=== PATIENT | female | born 1950 | race Caucasian/White ===

== ENCOUNTER 2018-01-10 09:19 | Inpatient (IN) | payer MEDICARE, OTHER ==
[2018-01-05 10:08] LABS: URINE BILIRUBIN NEGATIVE (Negative); URINE BLOOD NEGATIVE (Negative); URINE COLOR YELLOW; URINE GLUCOSE-RANDOM NEGATIVE (Negative); URINE KETONES NEGATIVE (Negative); URINE LEUKOCYTES-REFLEX 1+ (Negative); URINE NITRITE-REFLEX NEGATIVE (Negative); URINE PROTEIN NEGATIVE (Negative); URINE SPECIFIC GRAVITY 1.025 (1.005-1.030); URINE UROBILINOGEN 0.2 E.U./dl (0.2-1.0)
[2018-01-05 10:10] LABS: URINE CLARITY SL CLOUDY
[2018-01-05 10:26] LABS: BACTERIA-REFLEX >30 Many /HPF (None Seen); CASTS None Seen /LPF (None Seen); CRYSTALS None Seen /LPF (None Seen); SQUAMOUS >10 Many /LPF (0-3); URINE RBC None Seen /HPF (0-2); URINE WBC-REFLEX 6-15 Few /HPF (0-5)
[2018-01-05 10:31] LABS: HEMATOCRIT 43.9 % (37.0-47.0); HEMOGLOBIN 14.5 gm/dL (12.0-15.0); MCH 28.5 pg (26.0-34.0); MCHC 32.9 g/dL (28.0-37.0); MCV 86.7 fL (80.0-100.0); MPV 7.8 fl. (7.2-11.1); RBC 5.07 mil/uL (4.20-5.00); WBC 7.4 thou/uL (4.0-11.0)
[2018-01-05 10:46] LABS: INR 1.1; PROTIME 10.7 Seconds (9.20-11.50)
[2018-01-05 10:51] LABS: ALBUMIN 3.6 g/dL (3.4-5.0); CALCIUM 9.1 mg/dL (8.5-10.1); CREATININE 0.8 mg/dL (0.6-1.3); POTASSIUM 4.4 mmol/L (3.5-5.1); TOTAL BILIRUBIN 0.3 mg/dL (<0.1-1.0); TOTAL PROTEIN 7.5 g/dL (6.4-8.2)
--- NOTE | 2018-01-05 11:30 | EKG ---
[place] [address] ELECTROCARDIOGRAM REPORT Name: MARCEL MA Room: PRE IN [facility].#: [id number] Admission: Attend Phys: Bill Suggs Discharge: Date of : 54 Report #: [id number] THIS REPORT FOR: //name// [facility] Test Date: 2018-01-05 Test Time: 09:28:45 Pat Name: MARCEL MA Department: Room: Gender: F Ux Developer: : 1950 Requested By: Bran Worrell Order Number: [id number] Reading MD: Tyron Ledbetter Measurements Intervals [place] Rate: 87 P: 59 SD: 127 QRS: 46 QRSD: 92 T: 34 QT: 348 QTc: 419 Interpretive Statements Sinus rhythm No previous ECG available for comparison Electronically Signed On 01-05-2018 11:29:49 KNITTING SUPERVISOR by Tyron Ledbetter [email or web address] <ELECTRONICALLY SIGNED> By: Tyron Ledbetter MD, [facility] 01/05/18 1129 0928 0928 Tyron Ledbetter MD, [facility] /EPI
[~2018-01-10] VITALS: Ht 157.5 cm; Wt 99.8 kg
[2018-01-10 10:30] VITALS: BP 128/90
[2018-01-10 16:24] VITALS: BP 134/69
--- NOTE | 2018-01-10 16:39 | NUR ---
PATIENT ARRIVED ON UNIT AT 1615 FROM PACU. COMPLETED ASSESSMENT. ALERT AND ORIENTED X'S 4. VITAL SIGNS AND SPO2 STABLE. CAPNO IN PLACE. IV CLEAN, FLUIDS INFUSING. DRESSING OVER KNEE CLEAN, DRY, INTACT. HEMOVAC IN PLACE. POLAR CARE, TEDS ON LEFT LEG, SCD'S, YELLOW SOCKS IN PLACE. NO NAUSEA AND VOMITING. PAIN WELL CONTROLLED WITH PAIN MEDS. COMPLETED HOURLY ROUNDING. CALL LIGHT WITHIN REACH, WILL CONTINUE TO MONITOR.
--- NOTE | 2018-01-10 16:54 | NUR ---
RECIEVED O.T. EVAL AND TX ORDER. WILL DEFER TO P.T. AND NURSING AT THIS TIME. PLEASE ORDER FURTHER O.T. SERVICES IF NEEDED.
[2018-01-11 00:11] VITALS: BP 147/65
[2018-01-11 04:19] VITALS: BP 116/56
[2018-01-11 04:53] LABS: ABSOLUTE LYMPHOCYTES 1.4 thou/uL (0.8-5.3); ABSOLUTE MONOCYTES 0.6 thou/uL (0.0-1.2); BASOPHILS 0.1 %; CALCIUM 8.4 mg/dL (8.5-10.1); CREATININE 0.8 mg/dL (0.6-1.3); HEMATOCRIT 35.5 % (37.0-47.0); LYMPHOCYTES 12.5 %; MCH 29.1 pg (26.0-34.0); MCHC 33.8 g/dL (28.0-37.0); MCV 86.2 fL (80.0-100.0); MONOCYTES 5.4 %; MPV 8.6 fl. (7.2-11.1); NUCLEATED RBCS 0 /100WBC; PLATELET COUNT* 229 thou/uL (150-400); POTASSIUM 4.8 mmol/L (3.5-5.1); RBC 4.12 mil/uL (4.20-5.00); RDW-CV 13.2 % (10.5-14.5)
--- NOTE | 2018-01-11 04:54 | NUR ---
PATIENT IS ALERT AND ORIENTED X 4. VSS ON 3L 02 VIA NASAL CANNULA AND CAPNO IN PLACE. PATIENT HAS SLEPT WELL THROUGHOUT THE NIGHT WITHOUT ANY ISSUES. PAIN CONTROLLED WITH MEDICATION ORDERED AND CHARTED. DRESSING TO RIGHT KNEE IS C/D/I, LICO HOSE, POLAR CARE AND SCD'S IN PLACE. HEMOVAC IN PLACE WITH MODERATE AMOUNT OF SEROSANGINOUS DRAINAGE. IV IN LEFT HAND-SL. IV IN RIGHT HAND-SL. IV ABT GIVEN WITHOUT ANY ADVERSE SIDE EFFECTS NOTED. FALL PRECAUTIONS IN PLACE. PATIENT INSTRUCTED TO USE CALL LIGHT WHEN NEEDING ASSISTANCE. HOURY ROUNDS MADE. WILL CONTINUE WITH PLAN OF CARE AND NURSING TO MONITOR.
[2018-01-11 08:10] VITALS: BP 111/68
[2018-01-11 16:00] VITALS: BP 132/64
--- NOTE | 2018-01-11 17:06 | NUR ---
SPOKE WITH PT.AND . SHE SAID HE WILL BE WITH HER FOR 2-3 DAYS 20/06. SHE HAS A REGULAR FRONT WHEEL WALKER THAT THERAPIST RECOMMENDED. ALSO HAS A ROLLATOR WALKER WITH SEAT. DISCUSSED CPM AND POLAR PACK.SHE WOULD LIKE TO USE [facility]. CM CALLED IN XARELTO PRESCRIPTION WRITTEN TO PT.'S PHARMACY IN [place]. SOMEONE WILL NEED TO CALL IN AM FOR COPAY. PT.SAID [place].
[2018-01-11 17:11] VITALS: BP 132/64
[2018-01-11 20:25] VITALS: BP 120/58
[2018-01-12 00:01] VITALS: BP 123/78
[2018-01-12 04:00] VITALS: BP 133/74
[2018-01-12 04:02] LABS: ABSOLUTE BASOPHILS 0.1 thou/uL (0.0-0.2); ABSOLUTE EOSINOPHILS 0.1 thou/uL (0.0-0.7); ABSOLUTE MONOCYTES 0.9 thou/uL (0.0-1.2); ABSOLUTE NEUTROPHILS 6.2 thou/uL (1.6-8.1); BASOPHILS 0.6 %; EOSINOPHILS 0.6 %; HEMATOCRIT 32.8 % (37.0-47.0); HEMOGLOBIN 11.3 gm/dL (12.0-15.0); LYMPHOCYTES 29.7 %; MCH 29.4 pg (26.0-34.0); MCHC 34.4 g/dL (28.0-37.0); MCV 85.7 fL (80.0-100.0); MPV 8.6 fl. (7.2-11.1); NUCLEATED RBCS 0 /100WBC; PLATELET COUNT* 203 thou/uL (150-400); POLYS 60.1 %; RBC 3.83 mil/uL (4.20-5.00); RDW-CV 12.9 % (10.5-14.5); WBC 10.2 thou/uL (4.0-11.0)
[2018-01-12 04:28] LABS: CALCIUM 8.1 mg/dL (8.5-10.1); CREATININE 0.8 mg/dL (0.6-1.3)
--- NOTE | 2018-01-12 04:44 | NUR ---
PATIENT ALERT AND ORIENTED. RA. VITALS STABLE. REQUIRED A DOSE OF IV TORADOL EARLY THIS MORNING. EDUCATED THAT IF SHE WANTS TO BE DISCHARGED HOME TODAY HER PAIN NEEDS TO BE CONTROLLED WITH PO MEDICATION. UP WITH ASSIST X 1 TO BSC. WBAT. RIGHT KNEE DRESSING C/D/I. HOURLY ROUNDS. BED ALARM IN USE. NURSING WILL CONTINUE TO MONITOR.
[2018-01-12 07:32] VITALS: BP 122/69
[2018-01-12 10:12] VITALS: BP 132/64
--- NOTE | 2018-01-12 10:14 | NUR ---
CM SPOKE TO THE PATIENT TO DISCUSS DISCHARGE PLANNING NEEDS AND TO CLARIFY THE PATIENTS PHARMACY INFO. PATIENT STATES THAT SHE USES THE [facility] [address] [place]. CM INFORMED NURSING OF THIS INFO. CM CALLED THE PHARMACY AND THE CO-PAY AMOUNT FOR THE PATIENTS XERALTO IS $13.99. CM INFORMED THE PATIENTS OF THIS. PATIENT IN AGREEMENT. CM SPOKE TO JOHNNY AT [facility] TO INFORM OF THE REFERRAL AND FAXED THE PATIENTS FACESHEET, H&P, AND D/C ORDERS. CM WILL REMAIN AVAILABLE TO ASSIST AND FOLLOW NEEDED.
[2018-01-12] MEDS ORDERED: XARELTO10 MG PO (12:03)
[2018-01-12] MEDS ORDERED: PERCOCET PO (12:05)
--- NOTE | 2018-01-12 12:50 | S ---
[address] [address] SURGICAL PATH RPT PROCEDURE Name: ZEINA MA Room: [address] IN ..#: [id number] Admission: 01/10/18 Date of : 54 Discharge: Report #: [id number] Path Case #: [id number] PATHOLOGY REPORT COLLECTION DATE: 01/10/2018 RECEIVED DATE: 01/10/2018 SUBMITTING PHYS: Dr. Bran Worrell II OTHER PHYS: Dr. Marco Antonio Wilson SPECIMEN(S) RECEIVED: A.Right knee bone and tissue * * * * * * * * * * * * FINAL DIAGNOSIS: Right knee bone and tissue, total knee replacement: - Mild non-specific chronic synovitis, benign meniscus, and benign bone and cartilage with degenerative changes. (JOSE:mgr; 01/12/2018) PATHOLOGIST: Hawk Molina M.D. REPORT ELECTRONICALLY SIGNED BY: Hawk Molina M.D. DATE/TIME: 01/12/2018 12:49 * * * * * * * * * * * * GROSS PATHOLOGY: Received in formalin labeled "Zeina Ma, right knee bone and tissue," are multiple segments of bone, including tibial plateau, measuring 11.9 x 9.4 x 1.9 cm in aggregate dimensions with scant attached soft tissue; possible meniscus is present. The specimen shows focal eburnation of the articular surfaces. Waste Collection Driver sections of bone and soft tissue are submitted in cassette A1, following decalcification. (DAC; 01/11/2018) CLINICAL HISTORY: Right knee degenerative joint disease INITIAL CPT CODE(S): A; 26411, 25803 Professional services performed by [facility] at [facility], [address] [place], [place] [address] [address]. Technical services performed by [facility] at [address] [place] [address], [facility] [address] [address]. [place] [address] SURGICAL PATH RPT PROCEDURE Name: ZEINA MA Room: [address] IN [facility].#: [id number] Admission: 01/10/18 Date of : 54 Discharge: Report #: [id number] Path Case #: [id number] [facility] [address] [address] PHONE: [phone] DIRECTOR: Stephen Godoy M.D. * * * END OF REPORT * * *
--- NOTE | 2018-01-12 15:37 | NUR ---
ASSUMED CARE OF PATIENT AFTER MORNING REPORT. ALERT AND ORIENTED X4. ASSESSMENT COMPLETED AND CHARTED. VSS ON ROOM AIR. PATIENT HAD HAD NO COMPLAINTS OF NAUSEA THIS SHIFT. PAIN HAS BEEN MANAGED WITH PAIN MEDICATION. PATIENT HAS WORKED WELL WITH THERAPY TODAY. PATIENT DISCHARGED AT 1530. ALL PERSONAL BELONGINGS LEFT WITH PATIENT. PRESCRIPTIONS AND DISCHARGE INFORMATION SENT WITH PATIENT UPON DISCHARGE.
--- NOTE | 2018-01-17 08:34 | OP ---
[address] [address] OPERATIVE REPORT Name: MARCEL MA Room: [address] IN .R.#: [id number] Admission: 01/10/18 Attend Phys: Bill Suggs Discharge: 01/12/18 Date of : 54 Report #: [id number] THIS REPORT FOR: //name// CC: [facility] physician/PCP Bran Wilson DATE OF SERVICE: 01/10/2018 PREOPERATIVE DIAGNOSIS: Right knee osteoarthritis. POSTOPERATIVE DIAGNOSIS: Right knee osteoarthritis. PROCEDURE: Right total knee arthroplasty with Navio. SURGEON: Bran Worrell II, DO. SEISMIC ENGINEER: LISA Neal ANESTHESIA: Per operative record. ESTIMATED BLOOD LOSS: 50 mL. ANTIBIOTICS: Per operative record. DRAINS: Hemovac. COMPLICATIONS: None. CONDITION OF THE PATIENT: Stable to recovery room. Implant size listed in progress note and operative record. BRIEF HISTORY: The patient was seen in the preoperative area. Preoperative H and P was performed. The patient failed conservative management. We discussed the risks and benefits of the surgery, elected to proceed and assumed all risks. DESCRIPTION OF PROCEDURE: The patient was taken to the operative suite, placed supine on the operative table, given appropriate anesthesia. The patient's knee had a sterile prep and drape. A well-padded tourniquet applied to the upper thigh, which was inflated to 300 mmHg after gravity exsanguination for the duration of procedure. Procedure began by midline incision on the right knee and carried down to subcutaneous tissues. A medial parapatellar arthrotomy was then performed and carried down to bone. The patella was then everted and excess soft tissues and osteophytes removed from around the femur and tibia. At this time, a tracker pin was then placed in the femur [place] [address] OPERATIVE REPORT Name: MARCEL MA Room: [facility] IN [facility].#: [id number] Admission: 01/10/18 Attend Phys: Bill Suggs Discharge: 01/12/18 Date of : 54 Report #: [id number] double barrel guide. The knee was then registered throughout range of motion as appropriate with the Airwareio robotic assistance. The robotic handpiece was then activated, and appropriate bur holes were then placed throughout the femur and tibia in line with the preoperative planning with the cutting blocks. The femoral cutting block was then applied and checked for rotational alignment and cut depth. Appropriate cut was then made, and excess bone was removed. The 4-in-1 cutting block was then applied, checked for rotation alignment and cut depth and appropriate cuts were made. These bones were then removed. Attention was then turned to the tibia. Retractors were placed. The tibial cutting block was then applied and checked for rotational alignment and slope, pinned into appropriate position. Appropriate cuts were made. The tibial bone was then removed. Tibial base plate was then applied, checked for rotational alignment and pinned into appropriate position. Femur was then applied, and box cut was reamed. It was then trialled over the appropriate spacer and taken in full flexion, extension, with excellent range of motion, excellent stability of the knee. The patella was then reamed in appropriate fashion. Three peg holes were drilled. It was then trialed with excellent flexion, extension, excellent tracking within the groove. These trials were removed. The tibia was punched in appropriate fashion. Bone ends were cleansed with Pulsavac irrigation, and cement was mixed and applied to the final implants. These were then malleted into position and held with knee extension and compressed to allow the cement to cure. After it cured, excess removed using a Nickerson and osteotome. The wound was then copiously irrigated, and the final spacer was then malleted in position. Tourniquet was deflated. Hemostasis was maintained with electrocautery. The pain cocktail was injected. The PRP gel was sprayed throughout the internal aspect of the knee. The tracker pins were then removed. Medium Hemovac drain was then applied. The capsule was closed with 2 FiberWire and 1 Vicryl in [id number] fashion. Skin was closed with 2-0 Vicryl and running 3-0 Monocryl. The tracker pin incision sites were closed with a nylon. Dermabond and sterile dressing were then applied. Bowen wrap and PolarCare applied. The patient transported to recovery room in stable condition. Counts were correct throughout the procedure. <ELECTRONICALLY SIGNED> By: Bran Worrell II, DO 01/17/18 0834 0806 0936Bran Worrell II, DO /nt
== END 2018-01-12 15:30 | disposition home health service (06) | DRG 470 ==
LOC: M.TBA 09:55 → M.ORTHSURG 09:55 → M.PRE 10:07 → M.ORTHSURG 15:45
PROVIDERS: Orthopaedic Surgery; ADMIT Internal Medicine
PROC: 0SRC0J9 Replacement of Right Knee Joint with Synthetic Substitute, Cemented, Open Approach (ICD-10-PCS; principal; 2018-01-10)
PROC: 3E0T3BZ Introduction of Anesthetic Agent into Peripheral Nerves and Plexi, Percutaneous Approach (ICD-10-PCS; 2018-01-10)
DX: M17.11 Unilateral primary osteoarthritis, right knee (principal); Z68.41 Body mass index [BMI] 40.0-44.9, adult; E66.9 Obesity, unspecified; E83.51 Hypocalcemia; Z91.040 Latex allergy status